=== PATIENT | female | born 1940 | race Caucasian/White ===

== ENCOUNTER 2023-04-29 20:40 | Inpatient (IN) ==
[2023-04-29] MEDS ORDERED: DEXTROSE 31 GM ORAL.SUSP PO PRN (20:48)
[2023-04-29] MEDS ORDERED: DEXTROSE 50% 50 ML VIAL IV PRN (20:48)
[2023-04-29] MEDS ORDERED: IPRATROPIUM/ALBUTEROL 3 ML AMPUL.NEB NEB PRN (20:48)
[2023-04-29] MEDS ORDERED: traZODone HCL 50 MG TABLET PO PRN (20:48)
[2023-04-29] MEDS ORDERED: HYDROmorphone 0.5 MG/0.5 ML SYRINGE ONE (20:54)
[2023-04-29] MEDS: HYDROmorphone 0.5 MG/0.5 ML SYRINGE IV PRN ×2 (21:00→23:55)
[2023-04-29] MEDS: DOCUSATE SODIUM 100 MG CAPSULE PO SCH (21:31)
[2023-04-29] MEDS: SENNOSIDES 1 TABLET PO SCH (21:32)
[2023-04-29] MEDS: INSULIN LISPRO 1 UNIT/0.01 ML UNIT SQ SCH (21:32)
[2023-04-29] MEDS: 0.9 % SODIUM CHLORIDE 10 ML SYRINGE IV SCH (21:33)
[2023-04-29] MEDS: DEXTROSE 5%-LR 1,000 ML IV SCH (23:18)
[2023-04-30] MEDS: 0.9 % SODIUM CHLORIDE 10 ML SYRINGE IV SCH ×3 (05:03→21:38)
[2023-04-30] MEDS: INSULIN LISPRO 1 UNIT/0.01 ML UNIT SQ SCH ×4 (07:24→21:37)
[2023-04-30] MEDS: HYDROmorphone 0.5 MG/0.5 ML SYRINGE IV PRN ×3 (07:27→20:29)
[2023-04-30 07:50] LABS: Basophils # (Auto) 0.03 K/mcL (0.00-0.30); Basophils % (Auto) 0.3 % (0.0-2.0); Eosinophils # (Auto) 0 K/mcL (0.00-0.70); Eosinophils % (Auto) 0 % (0.0-7.0); Hematocrit 23.5 % (34.1-44.9); Hemoglobin 7.2 g/dL (11.2-15.7); Lymphocytes # (Auto) 1.42 K/mcL (1.50-4.80); Lymphocytes % (Auto) 12.1 % (15.5-49.0); Mean Cell Volume 95.9 fL (80.0-100.0); Mean Corpuscular HGB Conc 30.6 g/dL (31.0-36.0); Mean Platelet Volume 9.9 fL (8.8-12.5); Monocytes # (Auto) 1.24 K/mcL (0.10-0.90); Monocytes % (Auto) 10.6 % (1.0-12.0); Neutrophils % (Auto) 76.6 % (38.0-78.0); Platelet Count 211 K/mcL (140-440); RBC 2.45 M/mcL (3.59-5.38); Red Cell Distribution Width 14.9 % (11.5-14.5); WBC 11.8 K/mcL (4.5-11.0)
[2023-04-30] MEDS ORDERED: MECLIZINE 25 MG TABLET PO PRN (08:09)
[2023-04-30 08:16] LABS: ALT/SGPT 10 U/L (<40); AST/SGOT 15 U/L (<32); Albumin 3.2 gm/dL (3.2-5.2); Albumin/Globulin Ratio 1.5 (1.0-2.3); Alkaline Phosphatase 34 U/L (39-117); Bilirubin,Total 0.4 mg/dL (0.1-1.0); Blood Urea Nitrogen 49 mg/dL (8-23); Calcium 8.1 mg/dL (8.6-10.4); Carbon Dioxide 21 mmol/L (22-30); Chloride 108 mmol/L (96-108); Globulin 2.2 gm/dL (2.2-3.7); Glomerular Filtration Rate 12; Glucose 174 mg/dL (70-105)
[2023-04-30] MEDS ORDERED: 0.9 % SODIUM CHLORIDE 250 ML IV SCH (08:45)
[2023-04-30] MEDS: ESCITALOPRAM 10 MG TABLET PO SCH (09:19)
[2023-04-30] MEDS: ATORVASTATIN 40 MG TABLET PO SCH (09:19)
[2023-04-30] MEDS: DOCUSATE SODIUM 100 MG CAPSULE PO SCH ×2 (09:19→21:30)
[2023-04-30] MEDS: LOSARTAN 50 MG TABLET PO SCH (09:19)
[2023-04-30] MEDS: PIOGLITAZONE 15 MG TABLET PO SCH (09:19)
[2023-04-30] MEDS: DEXTROSE 5%-LR 1,000 ML IV SCH ×2 (09:30→21:08)
[2023-04-30] MEDS ORDERED: ALBUMIN HUMAN 25 GM/100 ML BAG IV SCH (14:43)
[2023-04-30] MEDS ORDERED: ceFAZolin 2 GM in DEXTROSE 5% IN WATER 50 ML IV SCH (15:15)
[2023-04-30 18:11] LABS: Basophils # (Auto) 0.03 K/mcL (0.00-0.30); Basophils % (Auto) 0.2 % (0.0-2.0); Eosinophils # (Auto) 0.02 K/mcL (0.00-0.70); Eosinophils % (Auto) 0.2 % (0.0-7.0); Hematocrit 23.5 % (34.1-44.9); Hemoglobin 7.2 g/dL (11.2-15.7); Lymphocytes # (Auto) 1.17 K/mcL (1.50-4.80); Lymphocytes % (Auto) 9.3 % (15.5-49.0); Mean Cell Volume 95.5 fL (80.0-100.0); Mean Corpuscular HGB Conc 30.6 g/dL (31.0-36.0); Mean Platelet Volume 9.9 fL (8.8-12.5); Monocytes # (Auto) 1.32 K/mcL (0.10-0.90); Monocytes % (Auto) 10.5 % (1.0-12.0); Neutrophils % (Auto) 79.2 % (38.0-78.0); Platelet Count 205 K/mcL (140-440); RBC 2.46 M/mcL (3.59-5.38); Red Cell Distribution Width 14.9 % (11.5-14.5); WBC 12.5 K/mcL (4.5-11.0)
[2023-04-30] MEDS ORDERED: PROPOFOL 200 MG/20 ML VIAL IV ONE (18:38)
[2023-04-30] MEDS ORDERED: ROCURONIUM 10 MG/ML ML IV ONE (18:39)
[2023-04-30] MEDS ORDERED: ONDANSETRON 4 MG/2 ML VIAL ONE (18:39)
[2023-04-30] MEDS ORDERED: ETOMIDATE 20 MG/10 ML VIAL IV ONE (18:39)
[2023-04-30] MEDS ORDERED: fentaNYL 100 MCG/2 ML VIAL IV ONE (18:41)
[2023-04-30] MEDS ORDERED: SUGAMMADEX SODIUM 200 MG/2 ML VIAL IV ONE (19:00)
[2023-04-30] MEDS ORDERED: TRANEXAMIC ACID 1,000 MG/10 ML VIAL ONE ×2 (19:09→19:44)
[2023-04-30] MEDS ORDERED: BENZOCAINE/MENTHOL 1 LOZENGE PO PRN (19:28)
[2023-04-30] MEDS ORDERED: HYDROmorphone 1 MG/ML SYRINGE IV PRN (19:28)
[2023-04-30] MEDS ORDERED: ONDANSETRON 4 MG/2 ML VIAL IV PRN (19:28)
[2023-04-30] MEDS ORDERED: MAGNESIUM HYDROXIDE 30 ML ORAL.SUSP PO PRN (19:28)
[2023-04-30] MEDS ORDERED: TRANEXAMIC ACID 1,000 MG/10 ML VIAL IV ONE (19:28)
[2023-04-30] MEDS ORDERED: LABETALOL HCL 20 MG/4 ML VIAL IV ONE (19:30)
[2023-04-30] MEDS: ONDANSETRON 4 MG/2 ML VIAL IV PRN (19:52)
[2023-04-30] MEDS: SENNOSIDES 1 TABLET PO SCH (21:30)
[2023-04-30] MEDS: 0.45 % SODIUM CHLORIDE 1,000 ML IV SCH (21:30)
[2023-04-30] MEDS: ASPIRIN 81 MG TAB.CHEW CHEWED SCH (21:32)
[2023-04-30] MEDS: BACLOFEN 10 MG TABLET PO PRN (21:37)
[2023-04-30] MEDS ORDERED: 0.9 % SODIUM CHLORIDE 10 ML SYRINGE IV SCH (22:00)
[2023-05-01] MEDS: HYDROmorphone 0.5 MG/0.5 ML SYRINGE IV PRN ×3 (00:03→12:54)
[2023-05-01] MEDS: ceFAZolin 1 GM VIAL IV SCH ×2 (04:04→10:20)
[2023-05-01] MEDS: DEXTROSE 5%-LR 1,000 ML IV SCH ×3 (05:06→16:02)
[2023-05-01] MEDS: 0.9 % SODIUM CHLORIDE 10 ML SYRINGE IV SCH ×3 (05:07→22:13)
[2023-05-01 06:54] LABS: Basophils # (Auto) 0.03 K/mcL (0.00-0.30); Basophils % (Auto) 0.3 % (0.0-2.0); Eosinophils # (Auto) 0.01 K/mcL (0.00-0.70); Eosinophils % (Auto) 0.1 % (0.0-7.0); Hematocrit 18.6 % (34.1-44.9); Hemoglobin 5.6 g/dL (11.2-15.7); Lymphocytes # (Auto) 1.33 K/mcL (1.50-4.80); Lymphocytes % (Auto) 11.6 % (15.5-49.0); Mean Cell Volume 96.4 fL (80.0-100.0); Mean Corpuscular HGB Conc 30.1 g/dL (31.0-36.0); Mean Platelet Volume 9.7 fL (8.8-12.5); Monocytes # (Auto) 1.34 K/mcL (0.10-0.90); Monocytes % (Auto) 11.6 % (1.0-12.0); Neutrophils % (Auto) 75.8 % (38.0-78.0); Platelet Count 164 K/mcL (140-440); RBC 1.93 M/mcL (3.59-5.38); Red Cell Distribution Width 15.2 % (11.5-14.5); WBC 11.5 K/mcL (4.5-11.0)
[2023-05-01] MEDS: 0.45 % SODIUM CHLORIDE 1,000 ML IV SCH (07:11)
[2023-05-01] MEDS: INSULIN LISPRO 1 UNIT/0.01 ML UNIT SQ SCH ×4 (07:13→21:59)
[2023-05-01 07:24] LABS: ALT/SGPT 10 U/L (<40); AST/SGOT 17 U/L (<32); Albumin 2.5 gm/dL (3.2-5.2); Albumin/Globulin Ratio 1.1 (1.0-2.3); Alkaline Phosphatase 34 U/L (39-117); Bilirubin,Total 0.2 mg/dL (0.1-1.0); Blood Urea Nitrogen 50 mg/dL (8-23); Calcium 7.8 mg/dL (8.6-10.4); Carbon Dioxide 19 mmol/L (22-30); Chloride 111 mmol/L (96-108); Globulin 2.3 gm/dL (2.2-3.7); Glomerular Filtration Rate 10; Glucose 123 mg/dL (70-105)
[2023-05-01] MEDS: PIOGLITAZONE 15 MG TABLET PO SCH (08:59)
[2023-05-01] MEDS: ASPIRIN 81 MG TAB.CHEW CHEWED SCH ×2 (08:59→22:12)
[2023-05-01] MEDS: DOCUSATE SODIUM 100 MG CAPSULE PO SCH ×2 (08:59→22:13)
[2023-05-01] MEDS: LOSARTAN 50 MG TABLET PO SCH (09:00)
[2023-05-01] MEDS: ATORVASTATIN 40 MG TABLET PO SCH (09:00)
[2023-05-01] MEDS: ESCITALOPRAM 10 MG TABLET PO SCH (09:00)
[2023-05-01] MEDS ORDERED: 0.9 % SODIUM CHLORIDE 250 ML IV SCH (10:45)
[2023-05-01] MEDS ORDERED: NALOXONE HCL 0.4 MG/ML VIAL IV ONE (18:47)
[2023-05-01] MEDS ORDERED: NALOXONE HCL 0.4 MG/ML VIAL ONE (18:54)
[2023-05-01] MEDS ORDERED: ACETAMINOPHEN 1,000 MG/100 ML BAG IV ONE (19:18)
[2023-05-01] MEDS: ACETAMINOPHEN 1,000 MG/100 ML BAG IV PRN (19:20)
[2023-05-01 20:30] LABS: Hematocrit 30.5 % (34.1-44.9); Hemoglobin 9.2 g/dL (11.2-15.7)
[2023-05-01] MEDS: SENNOSIDES 1 TABLET PO SCH (22:13)
[2023-05-02] MEDS: KETOROLAC 15 MG/ML VIAL IV PRN ×2 (00:19→06:04)
[2023-05-02] MEDS: DEXTROSE 5%-LR 1,000 ML IV SCH ×3 (03:59→23:22)
[2023-05-02] MEDS: ACETAMINOPHEN 1,000 MG/100 ML BAG IV PRN ×3 (04:01→21:05)
[2023-05-02] MEDS: 0.9 % SODIUM CHLORIDE 10 ML SYRINGE IV SCH ×3 (05:26→21:15)
[2023-05-02 06:27] LABS: Basophils # (Auto) 0.02 K/mcL (0.00-0.30); Basophils % (Auto) 0.2 % (0.0-2.0); Eosinophils # (Auto) 0.03 K/mcL (0.00-0.70); Eosinophils % (Auto) 0.3 % (0.0-7.0); Hematocrit 26.9 % (34.1-44.9); Hemoglobin 7.8 g/dL (11.2-15.7); Lymphocytes # (Auto) 1.49 K/mcL (1.50-4.80); Lymphocytes % (Auto) 15.6 % (15.5-49.0); Mean Cell Volume 100.7 fL (80.0-100.0); Mean Platelet Volume 10.2 fL (8.8-12.5); Monocytes % (Auto) 9.4 % (1.0-12.0); Neutrophils % (Auto) 73.8 % (38.0-78.0); Platelet Count 132 K/mcL (140-440); RBC 2.67 M/mcL (3.59-5.38); Red Cell Distribution Width 16.5 % (11.5-14.5); WBC 9.6 K/mcL (4.5-11.0)
[2023-05-02 07:01] LABS: ALT/SGPT < 5 U/L (<40); AST/SGOT 13 U/L (<32); Albumin 2.3 gm/dL (3.2-5.2); Albumin/Globulin Ratio 1.1 (1.0-2.3); Alkaline Phosphatase 36 U/L (39-117); Bilirubin,Total 0.3 mg/dL (0.1-1.0); Blood Urea Nitrogen 54 mg/dL (8-23); Calcium 7.6 mg/dL (8.6-10.4); Carbon Dioxide 17 mmol/L (22-30); Chloride 111 mmol/L (96-108); Globulin 2.1 gm/dL (2.2-3.7); Glomerular Filtration Rate 10; Glucose 151 mg/dL (70-105)
[2023-05-02] MEDS: INSULIN LISPRO 1 UNIT/0.01 ML UNIT SQ SCH ×5 (07:17→23:47)
[2023-05-02] MEDS: LOSARTAN 50 MG TABLET PO SCH (11:07)
[2023-05-02] MEDS: DOCUSATE SODIUM 100 MG CAPSULE PO SCH ×2 (11:45→20:12)
[2023-05-02] MEDS: PIOGLITAZONE 15 MG TABLET PO SCH (11:45)
[2023-05-02] MEDS: ESCITALOPRAM 10 MG TABLET PO SCH (11:45)
[2023-05-02] MEDS: ASPIRIN 81 MG TAB.CHEW CHEWED SCH ×2 (11:45→20:12)
[2023-05-02] MEDS: ATORVASTATIN 40 MG TABLET PO SCH (11:46)
[2023-05-02 12:17] LABS: Appearance,Urine CLOUDY (Clear); Bilirubin,Urine Negative (Negative); Color,Urine YELLOW; Culture Indicated,Urine Yes; Glucose,Urine (UA) Negative (Negative); Ketones,Urine Negative (Negative); Leukocyte Esterase,Urine Negative /uL (Negative); Mucus,Urine FEW /hpf; Nitrate,Urine Negative (Negative); Protein,Urine >=500 mg/dL (Negative); Specific Gravity,Urine 1.016 (1.000-1.035); Urine Blood 0.03 mg/dL (Negative); Urine Granular Cast 3 /lph (0-0); Urine Hyaline Cast 1 /lph (0-2); Urine RBC 5 /hpf (0-3); Urine Squamous Epithelial Cell 0 /hpf (0-4); Urine Transitional Epi Cells < 1 /hpf (0-2); Urine WBC 17 /hpf (0-4); Urobilinogen,Urine Negative
[2023-05-02] MEDS: hydrALAZINE 20 MG/ML VIAL IV PRN ×2 (13:32→21:05)
[2023-05-02] MEDS: ONDANSETRON 4 MG/2 ML VIAL IV PRN (14:08)
[2023-05-02] MEDS: morphine 2 MG/ML VIAL IV PRN (14:12)
[2023-05-02] MEDS: SENNOSIDES 1 TABLET PO SCH (20:12)
[2023-05-03] MEDS: DEXTROSE 5%-LR 1,000 ML IV SCH ×2 (01:07→11:12)
[2023-05-03] MEDS: hydrALAZINE 20 MG/ML VIAL IV PRN ×2 (01:46→08:35)
[2023-05-03] MEDS: INSULIN LISPRO 1 UNIT/0.01 ML UNIT SQ SCH ×4 (05:25→20:31)
[2023-05-03] MEDS: 0.9 % SODIUM CHLORIDE 10 ML SYRINGE IV SCH ×3 (05:26→20:31)
[2023-05-03 07:34] LABS: ALT/SGPT < 5 U/L (<40); AST/SGOT 16 U/L (<32); Albumin 2.6 gm/dL (3.2-5.2); Alkaline Phosphatase 54 U/L (39-117); Bilirubin,Total 0.5 mg/dL (0.1-1.0); Blood Urea Nitrogen 46 mg/dL (8-23); Carbon Dioxide 18 mmol/L (22-30); Chloride 111 mmol/L (96-108); Globulin 2.5 gm/dL (2.2-3.7); Glomerular Filtration Rate 11; Glucose 157 mg/dL (70-105)
[2023-05-03 08:01] LABS: Basophils # (Auto) 0.03 K/mcL (0.00-0.30); Basophils % (Auto) 0.2 % (0.0-2.0); Eosinophils # (Auto) 0.03 K/mcL (0.00-0.70); Eosinophils % (Auto) 0.2 % (0.0-7.0); Hematocrit 29.9 % (34.1-44.9); Hemoglobin 9.3 g/dL (11.2-15.7); Lymphocytes # (Auto) 1.27 K/mcL (1.50-4.80); Lymphocytes % (Auto) 10.6 % (15.5-49.0); Mean Cell Volume 94.6 fL (80.0-100.0); Mean Corpuscular HGB Conc 31.1 g/dL (31.0-36.0); Mean Platelet Volume 10.3 fL (8.8-12.5); Monocytes # (Auto) 0.78 K/mcL (0.10-0.90); Monocytes % (Auto) 6.5 % (1.0-12.0); Neutrophils % (Auto) 81.2 % (38.0-78.0); Platelet Count 180 K/mcL (140-440); RBC 3.16 M/mcL (3.59-5.38); Red Cell Distribution Width 15.6 % (11.5-14.5)
[2023-05-03] MEDS: morphine 2 MG/ML VIAL IV PRN (08:35)
[2023-05-03] MEDS: BACLOFEN 10 MG TABLET PO PRN (10:26)
[2023-05-03] MEDS: DOCUSATE SODIUM 100 MG CAPSULE PO SCH ×2 (10:26→20:30)
[2023-05-03] MEDS: PIOGLITAZONE 15 MG TABLET PO SCH (10:26)
[2023-05-03] MEDS: ATORVASTATIN 40 MG TABLET PO SCH (10:27)
[2023-05-03] MEDS: ASPIRIN 81 MG TAB.CHEW CHEWED SCH ×2 (10:27→20:30)
[2023-05-03] MEDS: ESCITALOPRAM 10 MG TABLET PO SCH (10:27)
[2023-05-03] MEDS: oxyCODONE IR 5 MG TABLET PO PRN (10:27)
[2023-05-03] MEDS: SENNOSIDES 1 TABLET PO SCH ×2 (20:30→20:40)
[2023-05-04] MEDS: 0.9 % SODIUM CHLORIDE 10 ML SYRINGE IV SCH ×3 (05:32→21:10)
[2023-05-04 06:42] LABS: Basophils # (Auto) 0.03 K/mcL (0.00-0.30); Basophils % (Auto) 0.3 % (0.0-2.0); Hematocrit 28.9 % (34.1-44.9); Hemoglobin 8.9 g/dL (11.2-15.7); Lymphocytes # (Auto) 1.52 K/mcL (1.50-4.80); Lymphocytes % (Auto) 15.5 % (15.5-49.0); Mean Cell Volume 93.8 fL (80.0-100.0); Mean Corpuscular HGB Conc 30.8 g/dL (31.0-36.0); Mean Platelet Volume 10.1 fL (8.8-12.5); Monocytes # (Auto) 0.86 K/mcL (0.10-0.90); Monocytes % (Auto) 8.8 % (1.0-12.0); Neutrophils % (Auto) 72.8 % (38.0-78.0); Platelet Count 199 K/mcL (140-440); RBC 3.08 M/mcL (3.59-5.38); Red Cell Distribution Width 15.4 % (11.5-14.5); WBC 9.8 K/mcL (4.5-11.0)
[2023-05-04 07:09] LABS: ALT/SGPT < 5 U/L (<40); AST/SGOT 12 U/L (<32); Albumin 2.6 gm/dL (3.2-5.2); Alkaline Phosphatase 49 U/L (39-117); Bilirubin,Direct < 0.2 mg/dL (0-0.3); Bilirubin,Total 0.7 mg/dL (0.1-1.0); Blood Urea Nitrogen 48 mg/dL (8-23); Calcium 8.4 mg/dL (8.6-10.4); Carbon Dioxide 20 mmol/L (22-30); Chloride 111 mmol/L (96-108); Globulin 2.6 gm/dL (2.2-3.7); Glomerular Filtration Rate 11; Glucose 102 mg/dL (70-105); Lactate Dehydrogenase 190 U/L (135-225); Phosphorous 3.6 mg/dL (2.5-4.5); Triglycerides 90 mg/dL (<150); Uric Acid 6.7 mg/dL (2.5-8.0)
[2023-05-04] MEDS: INSULIN LISPRO 1 UNIT/0.01 ML UNIT SQ SCH ×4 (07:27→21:03)
[2023-05-04] MEDS: METOPROLOL TARTRATE 5 MG/5 ML VIAL IV PRN ×2 (07:31→09:10)
[2023-05-04] MEDS: PIOGLITAZONE 15 MG TABLET PO SCH (08:53)
[2023-05-04] MEDS: ATORVASTATIN 40 MG TABLET PO SCH (08:53)
[2023-05-04] MEDS: ESCITALOPRAM 10 MG TABLET PO SCH (08:53)
[2023-05-04] MEDS: ACETAMINOPHEN 325 MG TABLET PO PRN (08:54)
[2023-05-04] MEDS: ASPIRIN 81 MG TAB.CHEW CHEWED SCH ×2 (08:55→21:10)
[2023-05-04] MEDS: LOSARTAN 50 MG TABLET PO SCH (08:55)
[2023-05-04] MEDS: DOCUSATE SODIUM 100 MG CAPSULE PO SCH ×2 (08:55→21:02)
[2023-05-04] MEDS: METOPROLOL TARTRATE 25 MG TABLET PO SCH ×2 (10:07→21:10)
[2023-05-04] MEDS: SENNOSIDES 1 TABLET PO SCH (21:02)
[2023-05-05] MEDS: 0.9 % SODIUM CHLORIDE 10 ML SYRINGE IV SCH ×3 (05:41→21:19)
[2023-05-05] MEDS: hydrALAZINE 20 MG/ML VIAL IV PRN (07:33)
[2023-05-05] MEDS: INSULIN LISPRO 1 UNIT/0.01 ML UNIT SQ SCH ×4 (07:39→20:09)
[2023-05-05] MEDS: ACETAMINOPHEN 325 MG TABLET PO PRN (07:57)
[2023-05-05] MEDS: oxyCODONE IR 5 MG TABLET PO PRN (09:14)
[2023-05-05] MEDS: PIOGLITAZONE 15 MG TABLET PO SCH (09:15)
[2023-05-05] MEDS: ATORVASTATIN 40 MG TABLET PO SCH (09:15)
[2023-05-05] MEDS: LOSARTAN 50 MG TABLET PO SCH (09:15)
[2023-05-05] MEDS: ASPIRIN 81 MG TAB.CHEW CHEWED SCH ×2 (09:15→19:59)
[2023-05-05] MEDS: DOCUSATE SODIUM 100 MG CAPSULE PO SCH ×2 (09:16→20:09)
[2023-05-05] MEDS: METOPROLOL TARTRATE 25 MG TABLET PO SCH ×2 (09:16→19:59)
[2023-05-05] MEDS: ESCITALOPRAM 10 MG TABLET PO SCH (09:16)
[2023-05-05] MEDS: LABETALOL HCL 20 MG/4 ML VIAL IV PRN ×2 (12:12→21:19)
[2023-05-05] MEDS: SENNOSIDES 1 TABLET PO SCH (20:09)
[2023-05-06] MEDS: oxyCODONE IR 5 MG TABLET PO PRN ×4 (00:10→21:10)
[2023-05-06] MEDS: 0.9 % SODIUM CHLORIDE 10 ML SYRINGE IV SCH ×3 (05:51→21:15)
[2023-05-06 06:08] LABS: Hematocrit 26.6 % (34.1-44.9); Hemoglobin 8.1 g/dL (11.2-15.7)
[2023-05-06 06:27] LABS: ALT/SGPT < 5 U/L (<40); AST/SGOT 12 U/L (<32); Albumin 2.6 gm/dL (3.2-5.2); Albumin/Globulin Ratio 1.2 (1.0-2.3); Alkaline Phosphatase 43 U/L (39-117); Bilirubin,Direct < 0.2 mg/dL (0-0.3); Bilirubin,Total 0.5 mg/dL (0.1-1.0); Blood Urea Nitrogen 62 mg/dL (8-23); Calcium 7.9 mg/dL (8.6-10.4); Carbon Dioxide 21 mmol/L (22-30); Chloride 107 mmol/L (96-108); Globulin 2.2 gm/dL (2.2-3.7); Glomerular Filtration Rate 11; Glucose 107 mg/dL (70-105); Lactate Dehydrogenase 184 U/L (135-225); Phosphorous 4.9 mg/dL (2.5-4.5); Triglycerides 95 mg/dL (<150); Uric Acid 6.9 mg/dL (2.5-8.0)
[2023-05-06] MEDS: INSULIN LISPRO 1 UNIT/0.01 ML UNIT SQ SCH ×4 (07:34→21:09)
[2023-05-06] MEDS: ASPIRIN 81 MG TAB.CHEW CHEWED SCH ×2 (08:30→21:10)
[2023-05-06] MEDS: METOPROLOL TARTRATE 25 MG TABLET PO SCH (08:30)
[2023-05-06] MEDS: ESCITALOPRAM 10 MG TABLET PO SCH (08:30)
[2023-05-06] MEDS: LOSARTAN 50 MG TABLET PO SCH (08:30)
[2023-05-06] MEDS: DOCUSATE SODIUM 100 MG CAPSULE PO SCH ×2 (08:30→21:14)
[2023-05-06] MEDS: PIOGLITAZONE 15 MG TABLET PO SCH (08:30)
[2023-05-06] MEDS: ATORVASTATIN 40 MG TABLET PO SCH (08:30)
[2023-05-06] MEDS: SODIUM BICARBONATE 650 MG TABLET PO SCH ×3 (08:32→21:14)
[2023-05-06] MEDS ORDERED: CARVEDILOL 3.125 MG TABLET PO SCH (08:50)
[2023-05-06 09:50] LABS: Retic Absolute 0.05 M/mcL (0.02-0.10)
[2023-05-06 09:51] LABS: Iron 42 ug/dL (37-145); TIBC Calculation 197 ug/dl (228-428); Transferrin % Saturation 21 % (15-50)
[2023-05-06 10:02] LABS: Ferritin 215.8 ng/mL (30.0-400.0)
[2023-05-06] MEDS ORDERED: FUROSEMIDE 40 MG/4 ML VIAL IV SCH (10:16)
[2023-05-06] MEDS ORDERED: ALBUMIN HUMAN 12.5 GM/50 ML VIAL IV SCH (10:16)
[2023-05-06] MEDS: ACETAMINOPHEN 325 MG TABLET PO PRN (16:22)
[2023-05-06] MEDS: CARVEDILOL 6.25 MG TABLET PO SCH (16:41)
[2023-05-06] MEDS: SENNOSIDES 1 TABLET PO SCH (21:15)
[2023-05-07] MEDS: oxyCODONE IR 5 MG TABLET PO PRN ×4 (05:04→20:49)
[2023-05-07 06:04] LABS: Hematocrit 25.5 % (34.1-44.9); Hemoglobin 7.8 g/dL (11.2-15.7)
[2023-05-07 06:25] LABS: ALT/SGPT < 5 U/L (<40); AST/SGOT 14 U/L (<32); Albumin 2.6 gm/dL (3.2-5.2); Albumin/Globulin Ratio 1.2 (1.0-2.3); Alkaline Phosphatase 42 U/L (39-117); Bilirubin,Direct < 0.2 mg/dL (0-0.3); Bilirubin,Total 0.5 mg/dL (0.1-1.0); Blood Urea Nitrogen 67 mg/dL (8-23); Carbon Dioxide 21 mmol/L (22-30); Chloride 105 mmol/L (96-108); Globulin 2.1 gm/dL (2.2-3.7); Glomerular Filtration Rate 10; Glucose 87 mg/dL (70-105); Lactate Dehydrogenase 200 U/L (135-225); Phosphorous 5.5 mg/dL (2.5-4.5); Triglycerides 134 mg/dL (<150); Uric Acid 7.1 mg/dL (2.5-8.0)
[2023-05-07] MEDS: 0.9 % SODIUM CHLORIDE 10 ML SYRINGE IV SCH ×3 (07:50→20:49)
[2023-05-07] MEDS: ASPIRIN 81 MG TAB.CHEW CHEWED SCH ×2 (07:50→20:49)
[2023-05-07] MEDS: SODIUM BICARBONATE 650 MG TABLET PO SCH (07:51)
[2023-05-07] MEDS: ATORVASTATIN 40 MG TABLET PO SCH (07:51)
[2023-05-07] MEDS: CARVEDILOL 6.25 MG TABLET PO SCH ×2 (07:51→17:16)
[2023-05-07] MEDS: PIOGLITAZONE 15 MG TABLET PO SCH (07:51)
[2023-05-07] MEDS: INSULIN LISPRO 1 UNIT/0.01 ML UNIT SQ SCH ×4 (07:51→20:44)
[2023-05-07] MEDS: LOSARTAN 50 MG TABLET PO SCH (07:51)
[2023-05-07] MEDS: DOCUSATE SODIUM 100 MG CAPSULE PO SCH ×2 (07:52→20:49)
[2023-05-07] MEDS: ESCITALOPRAM 10 MG TABLET PO SCH (07:52)
[2023-05-07] MEDS ORDERED: DARBEPOETIN ALFA 40 MCG/ML VIAL IV ONE (09:00)
[2023-05-07] MEDS: ACETAMINOPHEN 325 MG TABLET PO PRN (11:10)
[2023-05-07] MEDS: hydrALAZINE 20 MG/ML VIAL IV PRN (19:07)
[2023-05-07] MEDS: SENNOSIDES 1 TABLET PO SCH (20:49)
[2023-05-07] MEDS: LABETALOL HCL 20 MG/4 ML VIAL IV PRN (23:20)
[2023-05-07] MEDS: ACETAMINOPHEN 1,000 MG/100 ML BAG IV PRN (23:21)
[2023-05-08] MEDS: oxyCODONE IR 5 MG TABLET PO PRN ×2 (03:11→23:29)
[2023-05-08] MEDS: hydrALAZINE 20 MG/ML VIAL IV PRN (03:21)
[2023-05-08] MEDS: 0.9 % SODIUM CHLORIDE 10 ML SYRINGE IV SCH ×3 (05:20→21:50)
[2023-05-08] MEDS: ACETAMINOPHEN 1,000 MG/100 ML BAG IV PRN (05:49)
[2023-05-08] MEDS: CARVEDILOL 6.25 MG TABLET PO SCH ×2 (07:47→17:37)
[2023-05-08] MEDS: INSULIN LISPRO 1 UNIT/0.01 ML UNIT SQ SCH ×4 (07:49→20:54)
[2023-05-08] MEDS: ASPIRIN 81 MG TAB.CHEW CHEWED SCH ×2 (08:31→20:45)
[2023-05-08] MEDS: PIOGLITAZONE 15 MG TABLET PO SCH (08:31)
[2023-05-08] MEDS: DOCUSATE SODIUM 100 MG CAPSULE PO SCH ×2 (08:31→20:45)
[2023-05-08] MEDS: ATORVASTATIN 40 MG TABLET PO SCH (08:31)
[2023-05-08] MEDS: ESCITALOPRAM 10 MG TABLET PO SCH (08:31)
[2023-05-08 08:57] LABS: Hemoglobin 8.9 g/dL (11.2-15.7)
[2023-05-08 09:17] LABS: ALT/SGPT < 5 U/L (<40); AST/SGOT 15 U/L (<32); Albumin 2.9 gm/dL (3.2-5.2); Albumin/Globulin Ratio 1.3 (1.0-2.3); Alkaline Phosphatase 49 U/L (39-117); Bilirubin,Direct < 0.2 mg/dL (0-0.3); Bilirubin,Total 0.5 mg/dL (0.1-1.0); Blood Urea Nitrogen 69 mg/dL (8-23); Calcium 8.1 mg/dL (8.6-10.4); Carbon Dioxide 20 mmol/L (22-30); Chloride 103 mmol/L (96-108); Globulin 2.3 gm/dL (2.2-3.7); Glomerular Filtration Rate 11; Glucose 118 mg/dL (70-105); Lactate Dehydrogenase 245 U/L (135-225); Phosphorous 5.7 mg/dL (2.5-4.5); Triglycerides 190 mg/dL (<150); Uric Acid 6.8 mg/dL (2.5-8.0)
[2023-05-08] MEDS: LOSARTAN 50 MG TABLET PO SCH (10:39)
[2023-05-08] MEDS: ACETAMINOPHEN 325 MG TABLET PO PRN (20:44)
[2023-05-08] MEDS: SENNOSIDES 1 TABLET PO SCH (23:26)
[2023-05-09] MEDS: BACLOFEN 10 MG TABLET PO PRN ×2 (01:46→15:22)
[2023-05-09] MEDS: 0.9 % SODIUM CHLORIDE 10 ML SYRINGE IV SCH ×3 (06:10→20:59)
[2023-05-09] MEDS: INSULIN LISPRO 1 UNIT/0.01 ML UNIT SQ SCH ×4 (07:15→20:48)
[2023-05-09] MEDS: ESCITALOPRAM 10 MG TABLET PO SCH (08:40)
[2023-05-09] MEDS: CARVEDILOL 6.25 MG TABLET PO SCH ×2 (08:40→16:40)
[2023-05-09] MEDS: DOCUSATE SODIUM 100 MG CAPSULE PO SCH ×2 (08:40→20:59)
[2023-05-09] MEDS: ASPIRIN 81 MG TAB.CHEW CHEWED SCH ×3 (08:40→21:00)
[2023-05-09] MEDS: PIOGLITAZONE 15 MG TABLET PO SCH (08:40)
[2023-05-09] MEDS: LOSARTAN 50 MG TABLET PO SCH (08:40)
[2023-05-09] MEDS: ATORVASTATIN 40 MG TABLET PO SCH (08:40)
[2023-05-09] MEDS: ACETAMINOPHEN 325 MG TABLET PO PRN (08:40)
[2023-05-09] MEDS: ACETAMINOPHEN 1,000 MG/100 ML BAG IV PRN ×2 (15:22→22:33)
[2023-05-09] MEDS: SENNOSIDES 1 TABLET PO SCH (20:59)
[2023-05-09] MEDS: LABETALOL HCL 20 MG/4 ML VIAL IV PRN (23:47)
[2023-05-10] MEDS: 0.9 % SODIUM CHLORIDE 10 ML SYRINGE IV SCH ×3 (05:25→20:17)
[2023-05-10] MEDS: ACETAMINOPHEN 1,000 MG/100 ML BAG IV PRN ×2 (06:15→19:43)
[2023-05-10] MEDS: ASPIRIN 81 MG TAB.CHEW CHEWED SCH ×2 (08:14→20:17)
[2023-05-10] MEDS: DOCUSATE SODIUM 100 MG CAPSULE PO SCH ×2 (08:14→20:17)
[2023-05-10] MEDS: PIOGLITAZONE 15 MG TABLET PO SCH (08:14)
[2023-05-10] MEDS: CARVEDILOL 6.25 MG TABLET PO SCH ×2 (08:14→16:34)
[2023-05-10] MEDS: INSULIN LISPRO 1 UNIT/0.01 ML UNIT SQ SCH ×4 (08:14→20:16)
[2023-05-10] MEDS: ESCITALOPRAM 10 MG TABLET PO SCH (08:14)
[2023-05-10] MEDS: LOSARTAN 50 MG TABLET PO SCH (08:14)
[2023-05-10] MEDS: ATORVASTATIN 40 MG TABLET PO SCH (08:14)
[2023-05-10 09:25] LABS: Basophils # (Auto) 0.03 K/mcL (0.00-0.30); Basophils % (Auto) 0.4 % (0.0-2.0); Eosinophils # (Auto) 0.22 K/mcL (0.00-0.70); Eosinophils % (Auto) 2.7 % (0.0-7.0); Hematocrit 27.7 % (34.1-44.9); Hemoglobin 8.4 g/dL (11.2-15.7); Lymphocytes # (Auto) 1.39 K/mcL (1.50-4.80); Lymphocytes % (Auto) 17.1 % (15.5-49.0); Mean Cell Volume 97.9 fL (80.0-100.0); Mean Corpuscular HGB Conc 30.3 g/dL (31.0-36.0); Mean Platelet Volume 10.1 fL (8.8-12.5); Monocytes # (Auto) 0.85 K/mcL (0.10-0.90); Monocytes % (Auto) 10.5 % (1.0-12.0); Neutrophils % (Auto) 67.8 % (38.0-78.0); Platelet Count 315 K/mcL (140-440); RBC 2.83 M/mcL (3.59-5.38); Red Cell Distribution Width 14.6 % (11.5-14.5); WBC 8.1 K/mcL (4.5-11.0)
[2023-05-10 09:35] LABS: ALT/SGPT < 5 U/L (<40); AST/SGOT 15 U/L (<32); Albumin 2.6 gm/dL (3.2-5.2); Albumin/Globulin Ratio 1.1 (1.0-2.3); Alkaline Phosphatase 48 U/L (39-117); Bilirubin,Total 0.4 mg/dL (0.1-1.0); Blood Urea Nitrogen 79 mg/dL (8-23); Calcium 8.2 mg/dL (8.6-10.4); Carbon Dioxide 18 mmol/L (22-30); Chloride 103 mmol/L (96-108); Globulin 2.4 gm/dL (2.2-3.7); Glomerular Filtration Rate 9; Glucose 92 mg/dL (70-105)
[2023-05-10] MEDS: LACTATED RINGERS 1,000 ML IV SCH ×2 (11:48→22:47)
[2023-05-10] MEDS: SENNOSIDES 1 TABLET PO SCH (20:17)
[2023-05-10] MEDS: hydrALAZINE 20 MG/ML VIAL IV PRN (23:50)
[2023-05-11] MEDS: LABETALOL HCL 20 MG/4 ML VIAL IV PRN (00:42)
[2023-05-11] MEDS: 0.9 % SODIUM CHLORIDE 10 ML SYRINGE IV SCH ×3 (04:14→21:14)
[2023-05-11] MEDS: INSULIN LISPRO 1 UNIT/0.01 ML UNIT SQ SCH ×4 (07:53→19:59)
[2023-05-11] MEDS: DOCUSATE SODIUM 100 MG CAPSULE PO SCH ×2 (09:11→19:59)
[2023-05-11] MEDS: CARVEDILOL 6.25 MG TABLET PO SCH ×2 (09:11→17:34)
[2023-05-11] MEDS: ASPIRIN 81 MG TAB.CHEW CHEWED SCH ×2 (09:11→19:59)
[2023-05-11] MEDS: ATORVASTATIN 40 MG TABLET PO SCH (09:11)
[2023-05-11] MEDS: LOSARTAN 50 MG TABLET PO SCH (09:11)
[2023-05-11] MEDS: PIOGLITAZONE 15 MG TABLET PO SCH (09:11)
[2023-05-11] MEDS: ESCITALOPRAM 10 MG TABLET PO SCH (09:11)
[2023-05-11 11:02] LABS: Basophils # (Auto) 0.06 K/mcL (0.00-0.30); Basophils % (Auto) 0.5 % (0.0-2.0); Eosinophils # (Auto) 0.04 K/mcL (0.00-0.70); Eosinophils % (Auto) 0.3 % (0.0-7.0); Hematocrit 31.3 % (34.1-44.9); Hemoglobin 9.4 g/dL (11.2-15.7); Lymphocytes # (Auto) 1.02 K/mcL (1.50-4.80); Lymphocytes % (Auto) 8.1 % (15.5-49.0); Mean Cell Volume 96.9 fL (80.0-100.0); Mean Platelet Volume 9.9 fL (8.8-12.5); Monocytes # (Auto) 0.93 K/mcL (0.10-0.90); Monocytes % (Auto) 7.4 % (1.0-12.0); Neutrophils % (Auto) 82.9 % (38.0-78.0); Platelet Count 431 K/mcL (140-440); RBC 3.23 M/mcL (3.59-5.38); Red Cell Distribution Width 14.6 % (11.5-14.5); WBC 12.6 K/mcL (4.5-11.0)
[2023-05-11 11:30] LABS: ALT/SGPT < 5 U/L (<40); AST/SGOT 17 U/L (<32); Albumin/Globulin Ratio 1.1 (1.0-2.3); Alkaline Phosphatase 61 U/L (39-117); Bilirubin,Direct < 0.2 mg/dL (0-0.3); Bilirubin,Total 0.4 mg/dL (0.1-1.0); Blood Urea Nitrogen 81 mg/dL (8-23); Calcium 8.5 mg/dL (8.6-10.4); Carbon Dioxide 16 mmol/L (22-30); Chloride 102 mmol/L (96-108); Globulin 2.7 gm/dL (2.2-3.7); Glomerular Filtration Rate 8; Glucose 108 mg/dL (70-105); Lactate Dehydrogenase 273 U/L (135-225); Phosphorous 6.9 mg/dL (2.5-4.5); Triglycerides 178 mg/dL (<150); Uric Acid 8.1 mg/dL (2.5-8.0)
[2023-05-11] MEDS: ACETAMINOPHEN 1,000 MG/100 ML BAG IV PRN (15:46)
[2023-05-11] MEDS: FUROSEMIDE 20 MG/2 ML VIAL IV SCH (17:43)
[2023-05-11] MEDS: SENNOSIDES 1 TABLET PO SCH (19:59)
[2023-05-12] MEDS: 0.9 % SODIUM CHLORIDE 10 ML SYRINGE IV SCH ×3 (04:20→20:24)
[2023-05-12] MEDS: LABETALOL HCL 20 MG/4 ML VIAL IV PRN ×3 (04:20→16:46)
[2023-05-12 06:32] LABS: Basophils # (Auto) 0.04 K/mcL (0.00-0.30); Basophils % (Auto) 0.4 % (0.0-2.0); Eosinophils # (Auto) 0.13 K/mcL (0.00-0.70); Eosinophils % (Auto) 1.3 % (0.0-7.0); Hematocrit 25.6 % (34.1-44.9); Hemoglobin 7.5 g/dL (11.2-15.7); Lymphocytes % (Auto) 15.1 % (15.5-49.0); Mean Cell Volume 100.4 fL (80.0-100.0); Mean Corpuscular HGB Conc 29.3 g/dL (31.0-36.0); Mean Platelet Volume 9.7 fL (8.8-12.5); Monocytes # (Auto) 0.95 K/mcL (0.10-0.90); Monocytes % (Auto) 9.6 % (1.0-12.0); Platelet Count 342 K/mcL (140-440); RBC 2.55 M/mcL (3.59-5.38); Red Cell Distribution Width 14.9 % (11.5-14.5); WBC 9.9 K/mcL (4.5-11.0)
[2023-05-12 06:51] LABS: ALT/SGPT < 5 U/L (<40); AST/SGOT 13 U/L (<32); Albumin 2.5 gm/dL (3.2-5.2); Alkaline Phosphatase 53 U/L (39-117); Bilirubin,Total 0.4 mg/dL (0.1-1.0); Blood Urea Nitrogen 87 mg/dL (8-23); Calcium 8.3 mg/dL (8.6-10.4); Carbon Dioxide 17 mmol/L (22-30); Chloride 106 mmol/L (96-108); Globulin 2.4 gm/dL (2.2-3.7); Glomerular Filtration Rate 8; Glucose 84 mg/dL (70-105)
[2023-05-12] MEDS: INSULIN LISPRO 1 UNIT/0.01 ML UNIT SQ SCH ×4 (07:07→20:24)
[2023-05-12] MEDS: CARVEDILOL 6.25 MG TABLET PO SCH ×3 (07:18→16:46)
[2023-05-12] MEDS: FUROSEMIDE 20 MG/2 ML VIAL IV SCH (07:40)
[2023-05-12] MEDS: ATORVASTATIN 40 MG TABLET PO SCH (08:15)
[2023-05-12] MEDS: DOCUSATE SODIUM 100 MG CAPSULE PO SCH ×2 (08:15→19:32)
[2023-05-12] MEDS: ESCITALOPRAM 10 MG TABLET PO SCH (08:15)
[2023-05-12] MEDS: ASPIRIN 81 MG TAB.CHEW CHEWED SCH ×2 (08:15→19:32)
[2023-05-12] MEDS ORDERED: 0.9 % SODIUM CHLORIDE 250 ML IV SCH (15:00)
[2023-05-12] MEDS: SENNOSIDES 1 TABLET PO SCH (19:33)
[2023-05-13] MEDS: METOPROLOL TARTRATE 5 MG/5 ML VIAL IV PRN (03:48)
[2023-05-13] MEDS: 0.9 % SODIUM CHLORIDE 10 ML SYRINGE IV SCH ×3 (05:22→20:36)
[2023-05-13 06:04] LABS: Basophils # (Auto) 0.05 K/mcL (0.00-0.30); Basophils % (Auto) 0.5 % (0.0-2.0); Eosinophils # (Auto) 0.13 K/mcL (0.00-0.70); Eosinophils % (Auto) 1.2 % (0.0-7.0); Hematocrit 35.9 % (34.1-44.9); Hemoglobin 11.4 g/dL (11.2-15.7); Lymphocytes # (Auto) 1.56 K/mcL (1.50-4.80); Lymphocytes % (Auto) 14.3 % (15.5-49.0); Mean Cell Volume 93.7 fL (80.0-100.0); Mean Corpuscular HGB Conc 31.8 g/dL (31.0-36.0); Mean Platelet Volume 9.2 fL (8.8-12.5); Monocytes # (Auto) 1.14 K/mcL (0.10-0.90); Monocytes % (Auto) 10.4 % (1.0-12.0); Neutrophils % (Auto) 72.7 % (38.0-78.0); Platelet Count 342 K/mcL (140-440); RBC 3.83 M/mcL (3.59-5.38); WBC 10.9 K/mcL (4.5-11.0)
[2023-05-13 06:18] LABS: ALT/SGPT < 5 U/L (<40); AST/SGOT 12 U/L (<32); Albumin/Globulin Ratio 1.2 (1.0-2.3); Alkaline Phosphatase 62 U/L (39-117); Bilirubin,Total 0.6 mg/dL (0.1-1.0); Blood Urea Nitrogen 86 mg/dL (8-23); Calcium 8.7 mg/dL (8.6-10.4); Carbon Dioxide 17 mmol/L (22-30); Chloride 107 mmol/L (96-108); Globulin 2.6 gm/dL (2.2-3.7); Glomerular Filtration Rate 8; Glucose 97 mg/dL (70-105)
[2023-05-13 06:46] LABS: Phosphorous 7.4 mg/dL (2.5-4.5)
[2023-05-13] MEDS: INSULIN LISPRO 1 UNIT/0.01 ML UNIT SQ SCH ×4 (07:46→20:36)
[2023-05-13] MEDS: ATORVASTATIN 40 MG TABLET PO SCH (07:55)
[2023-05-13] MEDS: ESCITALOPRAM 10 MG TABLET PO SCH (07:55)
[2023-05-13] MEDS: CARVEDILOL 6.25 MG TABLET PO SCH ×2 (07:55)
[2023-05-13] MEDS: ASPIRIN 81 MG TAB.CHEW CHEWED SCH ×2 (07:55→20:36)
[2023-05-13] MEDS: DOCUSATE SODIUM 100 MG CAPSULE PO SCH ×2 (07:55→20:36)
[2023-05-13] MEDS ORDERED: SEVELAMER 800 MG TABLET PO SCH (09:20)
[2023-05-13] MEDS ORDERED: NITROGLYCERIN 0.3 MG/HR PATCH TD SCH (10:00)
[2023-05-13] MEDS: NITROGLYCERIN 5 MG (0.2 MG/HR) PATCH TD SCH (10:28)
[2023-05-13] MEDS: NITROGLYCERIN 0.1 MG/HR PATCH TD SCH (10:28)
[2023-05-13] MEDS: SEVELAMER 800 MG TABLET PO SCH ×2 (12:49→17:02)
[2023-05-13] MEDS: LABETALOL HCL 20 MG/4 ML VIAL IV PRN (17:09)
[2023-05-13] MEDS: hydrALAZINE 20 MG/ML VIAL IV PRN (18:44)
[2023-05-13] MEDS: SENNOSIDES 1 TABLET PO SCH (20:36)
[2023-05-13] MEDS: DILTIAZEM 30 MG TABLET PO SCH (20:36)
[2023-05-14] MEDS: 0.9 % SODIUM CHLORIDE 10 ML SYRINGE IV SCH ×3 (05:58→21:10)
[2023-05-14] MEDS: INSULIN LISPRO 1 UNIT/0.01 ML UNIT SQ SCH ×4 (06:59→21:36)
[2023-05-14 07:00] LABS: Basophils # (Auto) 0.05 K/mcL (0.00-0.30); Basophils % (Auto) 0.4 % (0.0-2.0); Eosinophils # (Auto) 0.12 K/mcL (0.00-0.70); Eosinophils % (Auto) 1.1 % (0.0-7.0); Hematocrit 35.1 % (34.1-44.9); Hemoglobin 10.8 g/dL (11.2-15.7); Lymphocytes # (Auto) 1.25 K/mcL (1.50-4.80); Lymphocytes % (Auto) 11.2 % (15.5-49.0); Mean Cell Volume 95.6 fL (80.0-100.0); Mean Corpuscular HGB Conc 30.8 g/dL (31.0-36.0); Mean Platelet Volume 9.2 fL (8.8-12.5); Monocytes % (Auto) 9.8 % (1.0-12.0); Neutrophils % (Auto) 76.8 % (38.0-78.0); Platelet Count 331 K/mcL (140-440); RBC 3.67 M/mcL (3.59-5.38); Red Cell Distribution Width 15.7 % (11.5-14.5); WBC 11.2 K/mcL (4.5-11.0)
[2023-05-14 07:27] LABS: ALT/SGPT < 5 U/L (<40); AST/SGOT 11 U/L (<32); Albumin 2.6 gm/dL (3.2-5.2); Alkaline Phosphatase 59 U/L (39-117); Bilirubin,Total 0.5 mg/dL (0.1-1.0); Blood Urea Nitrogen 86 mg/dL (8-23); Calcium 8.3 mg/dL (8.6-10.4); Carbon Dioxide 17 mmol/L (22-30); Chloride 107 mmol/L (96-108); Globulin 2.7 gm/dL (2.2-3.7); Glomerular Filtration Rate 9; Glucose 128 mg/dL (70-105)
[2023-05-14] MEDS: hydrALAZINE 20 MG/ML VIAL IV PRN ×2 (07:37→16:26)
[2023-05-14] MEDS: ONDANSETRON 4 MG/2 ML VIAL IV PRN (08:36)
[2023-05-14] MEDS: ESCITALOPRAM 10 MG TABLET PO SCH (08:36)
[2023-05-14] MEDS: ASPIRIN 81 MG TAB.CHEW CHEWED SCH ×2 (08:37→21:09)
[2023-05-14] MEDS: ATORVASTATIN 40 MG TABLET PO SCH (08:37)
[2023-05-14] MEDS: DOCUSATE SODIUM 100 MG CAPSULE PO SCH ×2 (08:37→21:09)
[2023-05-14] MEDS: SEVELAMER 800 MG TABLET PO SCH ×3 (08:37→17:44)
[2023-05-14] MEDS: DILTIAZEM 30 MG TABLET PO SCH ×2 (08:39→21:11)
[2023-05-14] MEDS: NITROGLYCERIN 5 MG (0.2 MG/HR) PATCH TD SCH (09:56)
[2023-05-14] MEDS: NITROGLYCERIN 0.1 MG/HR PATCH TD SCH (09:56)
[2023-05-14] MEDS: SENNOSIDES 1 TABLET PO SCH (21:09)
[2023-05-15] MEDS: ACETAMINOPHEN 1,000 MG/100 ML BAG IV PRN (03:21)
[2023-05-15] MEDS: 0.9 % SODIUM CHLORIDE 10 ML SYRINGE IV SCH ×3 (04:04→20:35)
[2023-05-15] MEDS: METOPROLOL TARTRATE 5 MG/5 ML VIAL IV PRN (04:08)
[2023-05-15 06:10] LABS: Basophils # (Auto) 0.03 K/mcL (0.00-0.30); Basophils % (Auto) 0.3 % (0.0-2.0); Eosinophils # (Auto) 0.14 K/mcL (0.00-0.70); Eosinophils % (Auto) 1.3 % (0.0-7.0); Hemoglobin 10.7 g/dL (11.2-15.7); Lymphocytes # (Auto) 1.15 K/mcL (1.50-4.80); Lymphocytes % (Auto) 10.9 % (15.5-49.0); Mean Cell Volume 96.4 fL (80.0-100.0); Mean Corpuscular HGB Conc 30.6 g/dL (31.0-36.0); Mean Platelet Volume 9.2 fL (8.8-12.5); Monocytes # (Auto) 1.05 K/mcL (0.10-0.90); Neutrophils % (Auto) 76.6 % (38.0-78.0); Platelet Count 320 K/mcL (140-440); RBC 3.63 M/mcL (3.59-5.38); Red Cell Distribution Width 15.6 % (11.5-14.5); WBC 10.5 K/mcL (4.5-11.0)
[2023-05-15 06:30] LABS: ALT/SGPT < 5 U/L (<40); AST/SGOT 10 U/L (<32); Albumin 2.8 gm/dL (3.2-5.2); Albumin/Globulin Ratio 1.2 (1.0-2.3); Alkaline Phosphatase 57 U/L (39-117); Bilirubin,Total 0.5 mg/dL (0.1-1.0); Blood Urea Nitrogen 84 mg/dL (8-23); Calcium 8.5 mg/dL (8.6-10.4); Carbon Dioxide 21 mmol/L (22-30); Chloride 109 mmol/L (96-108); Globulin 2.4 gm/dL (2.2-3.7); Glomerular Filtration Rate 11; Glucose 114 mg/dL (70-105)
[2023-05-15] MEDS: INSULIN LISPRO 1 UNIT/0.01 ML UNIT SQ SCH ×4 (07:31→20:42)
[2023-05-15] MEDS: LABETALOL HCL 20 MG/4 ML VIAL IV PRN ×2 (07:32→22:44)
[2023-05-15] MEDS: DILTIAZEM 30 MG TABLET PO SCH ×2 (08:28→20:33)
[2023-05-15] MEDS: ATORVASTATIN 40 MG TABLET PO SCH (08:28)
[2023-05-15] MEDS: SEVELAMER 800 MG TABLET PO SCH ×3 (08:28→17:53)
[2023-05-15] MEDS: ESCITALOPRAM 10 MG TABLET PO SCH (08:29)
[2023-05-15] MEDS: DOCUSATE SODIUM 100 MG CAPSULE PO SCH ×2 (08:29→20:33)
[2023-05-15] MEDS: ASPIRIN 81 MG TAB.CHEW CHEWED SCH ×2 (08:29→20:32)
[2023-05-15] MEDS: ACETAMINOPHEN 325 MG TABLET PO PRN ×2 (09:06→20:33)
[2023-05-15] MEDS: NITROGLYCERIN 0.4 MG/HR PATCH TD SCH (10:14)
[2023-05-15] MEDS: SENNOSIDES 1 TABLET PO SCH (20:33)
[2023-05-16] MEDS: 0.9 % SODIUM CHLORIDE 10 ML SYRINGE IV SCH (04:10)
[2023-05-16] MEDS: ACETAMINOPHEN 325 MG TABLET PO PRN (06:03)
[2023-05-16 06:09] LABS: Basophils # (Auto) 0.06 K/mcL (0.00-0.30); Basophils % (Auto) 0.7 % (0.0-2.0); Eosinophils # (Auto) 0.21 K/mcL (0.00-0.70); Eosinophils % (Auto) 2.3 % (0.0-7.0); Hematocrit 35.9 % (34.1-44.9); Hemoglobin 10.7 g/dL (11.2-15.7); Lymphocytes % (Auto) 17.4 % (15.5-49.0); Mean Cell Volume 100.3 fL (80.0-100.0); Mean Corpuscular HGB Conc 29.8 g/dL (31.0-36.0); Mean Platelet Volume 9.1 fL (8.8-12.5); Monocytes # (Auto) 0.93 K/mcL (0.10-0.90); Monocytes % (Auto) 10.1 % (1.0-12.0); Neutrophils % (Auto) 69.1 % (38.0-78.0); Platelet Count 293 K/mcL (140-440); RBC 3.58 M/mcL (3.59-5.38); Red Cell Distribution Width 15.3 % (11.5-14.5); WBC 9.2 K/mcL (4.5-11.0)
[2023-05-16 06:39] LABS: ALT/SGPT < 5 U/L (<40); AST/SGOT 12 U/L (<32); Albumin 2.8 gm/dL (3.2-5.2); Alkaline Phosphatase 58 U/L (39-117); Bilirubin,Total 0.6 mg/dL (0.1-1.0); Blood Urea Nitrogen 83 mg/dL (8-23); Calcium 8.5 mg/dL (8.6-10.4); Carbon Dioxide 18 mmol/L (22-30); Chloride 108 mmol/L (96-108); Globulin 2.8 gm/dL (2.2-3.7); Glomerular Filtration Rate 11; Glucose 101 mg/dL (70-105)
[2023-05-16] MEDS: INSULIN LISPRO 1 UNIT/0.01 ML UNIT SQ SCH ×2 (07:44→11:47)
[2023-05-16] MEDS: ATORVASTATIN 40 MG TABLET PO SCH (08:11)
[2023-05-16] MEDS: DOCUSATE SODIUM 100 MG CAPSULE PO SCH (08:11)
[2023-05-16] MEDS: ASPIRIN 81 MG TAB.CHEW CHEWED SCH (08:11)
[2023-05-16] MEDS: ESCITALOPRAM 10 MG TABLET PO SCH (08:11)
[2023-05-16] MEDS: SEVELAMER 800 MG TABLET PO SCH ×2 (08:13→11:48)
[2023-05-16] MEDS: METOPROLOL TARTRATE 5 MG/5 ML VIAL IV PRN (08:15)
[2023-05-16] MEDS ORDERED: DILTIAZEM 120 MG CAP.XL.24H PO SCH (09:00)
[2023-05-16] MEDS: NITROGLYCERIN 0.4 MG/HR PATCH TD SCH (10:44)
== END 2023-05-16 13:15 | DRG 480 ==
LOC: MEDSUR 20:40 → ICU 05-01 20:02 → MEDSUR 05-07 13:49
PROVIDERS: ADMIT Internal Medicine; ATTEND Internal Medicine